=== PATIENT | female | born 1995 | race African-American/Black ===

== ENCOUNTER 2022-07-16 10:09 | Emergency (ER) | payer BC, MEDICAID ==
[~2022-07-16] VITALS: Ht 172.7 cm; Wt 100.0 kg
[~2022-07-16 10:09] MED LIST: ALBUTEROL; NYQUIL
[2022-07-16 10:21] VITALS: BP 130/76
== END 2022-07-16 13:37 | disposition left against medical advice (07) ==
LOC: ER 10:09
DX: Z53.21 Procedure and treatment not carried out due to patient leaving prior to being seen by health care provider (principal)